=== PATIENT | female | born 1975 | race Caucasian/White ===

== ENCOUNTER 2017-10-08 14:35 | Outpatient (CLI) | payer OTHER ==
[~2017-10-08 14:35] MED LIST: CHOL2000 PO; CYAN10006 IM; DICL50PO5 PO; DOCU250C47 PO; DULO60CA64 PO; ESOM40CA PO; FENT-91 TD; FENT-92 TD; FOLI1TAB16 PO; LEVO125T PO; LISI10TA4 PO; METF-516 PO; NAPR220T67 PO; ONDA8TAB62 PO; OXYC-657 PO; OXYC-658 PO; TIZA-248 PO; TOPI100C6 PO; TRIA15CR3 TOP
[2017-10-08 15:28] LABS: BASOPHILS # (AUTO) 0.2 X10'3 (0-0.2); BASOPHILS % (AUTO) 1.3 % (0-1); EOSINOPHILS # (AUTO) 0.2 X10'3 (0-0.9); EOSINOPHILS % (AUTO) 1.9 % (0-6); HEMATOCRIT 44.3 % (35.0-45.0); HEMOGLOBIN 14.6 g/dl (12.0-16.0); LYMPHOCYTES # (AUTO) 4.2 X10'3 (1.1-4.8); LYMPHOCYTES % (AUTO) 35.6 % (21-51); MEAN CORPUSCULAR HEMOGLOBIN 26.8 PG (27.0-31.0); MEAN CORPUSCULAR HGB CONC 32.9 % (33.0-36.5); MEAN CORPUSCULAR VOLUME 81.2 FL (78-98); MEAN PLATELET VOLUME 8.5 FL (7.4-10.4); MONOCYTES # (AUTO) 0.5 X10'3 (0-0.9); MONOCYTES % (AUTO) 4.6 % (2-12); NEUTROPHILS # (AUTO) 6.8 X10'3 (1.8-7.7); NEUTROPHILS % (AUTO) 56.6 % (42-75); PLATELET COUNT 326 X10'3 (140-440); RED BLOOD COUNT 5.46 X10'6 (4.20-5.60); RED CELL DISTRIBUTION WIDTH 13.6 % (11.5-14.5); WHITE BLOOD COUNT 11.9 X10'3 (4.5-11.0)
[2017-10-08 15:53] LABS: ALANINE AMINOTRANSFERASE 40 U/L (12-78); ALBUMIN 3.7 G/DL (3.4-5.0); ALBUMIN/GLOBULIN RATIO 0.8 (1.1-1.5); ALKALINE PHOSPHATASE 117 IU/L (46-116); ANION GAP 9 (8-16); ASPARTATE AMINO TRANSFERASE 25 U/L (10-37); BILIRUBIN,TOTAL 0.3 MG/DL (0.1-1.0); BLOOD UREA NITROGEN 10 MG/DL (7-18); BUN/CREATININE RATIO 15.2 (6.6-38.0); CALCIUM 9.2 MG/DL (8.5-10.1); CHLORIDE 101 MMOL/L (99-107); CHOL/HDL RATIO 4.5 (0.00-4.99); CHOLESTEROL 238 MG/DL (0-200); CREATININE 0.66 MG/DL (0.40-0.90); GLUCOSE 90 MG/DL (70-104); HDL CHOLESTEROL 53 MG/DL (35-60); LDL CHOLESTEROL 144 MG/DL (50-100); PREALBUMIN 31.2 MG/DL (19-36); SODIUM 138 MMOL/L (135-145); TOTAL CARBON DIOXIDE 27.7 MMOL/L (24-32); TOTAL PROTEIN 8.3 G/DL (6.4-8.2); TRIGLYCERIDES 272 MG/DL (20-135); eGFR > 90 ML/MIN
[2017-10-08 15:54] LABS: POTASSIUM 4.2 MMOL/L (3.5-5.1)
[2017-10-08 16:13] LABS: % IRON SATURATION 16 % (11-46); IRON 61 UG/DL (49-151); TOTAL IRON BINDING CAPACITY 393 UG/DL (259-388)
[2017-10-10 13:24] LABS: VITAMIN D, 25-HYDROXY 32.5 ng/mL (30.0-100.0)
== END 2017-10-08 23:59 | disposition home or self-care (01) ==
LOC: LAB 14:35
PROVIDERS: ATTEND Physician Assistant Medical
DX: F32.9 Major depressive disorder, single episode, unspecified (principal); E07.9 Disorder of thyroid, unspecified; K21.9 Gastro-esophageal reflux disease without esophagitis; E66.01 Morbid (severe) obesity due to excess calories; R73.01 Impaired fasting glucose; M19.90 Unspecified osteoarthritis, unspecified site; G47.33 Obstructive sleep apnea (adult) (pediatric); I10 Essential (primary) hypertension; Z72.4 Inappropriate diet and eating habits; Z98.84 Bariatric surgery status
CPT/HCPCS: 36415; 80053; 80061; 82306; 82607; 83036; 83540; 83550; 84134; 84443; 84466; 85025

== ENCOUNTER 2018-01-14 11:57 | Outpatient (CLI) | payer OTHER ==
[2018-01-14 13:07] LABS: BASOPHILS # (AUTO) 0.1 X10'3 (0-0.2); BASOPHILS % (AUTO) 0.9 % (0-1); EOSINOPHILS # (AUTO) 0.2 X10'3 (0-0.9); EOSINOPHILS % (AUTO) 2.1 % (0-6); HEMATOCRIT 41.3 % (35.0-45.0); HEMOGLOBIN 14.1 g/dl (12.0-16.0); LYMPHOCYTES # (AUTO) 4.8 X10'3 (1.1-4.8); LYMPHOCYTES % (AUTO) 41.9 % (21-51); MEAN CORPUSCULAR HEMOGLOBIN 28.8 PG (27.0-31.0); MEAN CORPUSCULAR HGB CONC 34.1 % (33.0-36.5); MEAN CORPUSCULAR VOLUME 84.2 FL (78-98); MEAN PLATELET VOLUME 8.2 FL (7.4-10.4); MONOCYTES # (AUTO) 0.6 X10'3 (0-0.9); MONOCYTES % (AUTO) 4.8 % (2-12); NEUTROPHILS # (AUTO) 5.8 X10'3 (1.8-7.7); NEUTROPHILS % (AUTO) 50.3 % (42-75); PLATELET COUNT 364 X10'3 (140-440); RED BLOOD COUNT 4.91 X10'6 (4.20-5.60); RED CELL DISTRIBUTION WIDTH 13.9 % (11.5-14.5); WHITE BLOOD COUNT 11.5 X10'3 (4.5-11.0)
[2018-01-14 13:22] LABS: ALANINE AMINOTRANSFERASE 23 U/L (12-78); ALBUMIN 3.7 G/DL (3.4-5.0); ALBUMIN/GLOBULIN RATIO 0.9 (1.1-1.5); ALKALINE PHOSPHATASE 111 IU/L (46-116); ANION GAP 12 (8-16); ASPARTATE AMINO TRANSFERASE 10 U/L (10-37); BILIRUBIN,TOTAL 0.2 MG/DL (0.1-1.0); BLOOD UREA NITROGEN 21 MG/DL (7-18); BUN/CREATININE RATIO 29.2 (6.6-38.0); CALCIUM 8.9 MG/DL (8.5-10.1); CHLORIDE 101 MMOL/L (99-107); CHOL/HDL RATIO 4.7 (0.00-4.99); CHOLESTEROL 234 MG/DL (0-200); CREATININE 0.72 MG/DL (0.40-0.90); GLUCOSE 96 MG/DL (70-104); HDL CHOLESTEROL 50 MG/DL (35-60); LDL CHOLESTEROL 142 MG/DL (50-100); POTASSIUM 3.9 MMOL/L (3.5-5.1); SODIUM 138 MMOL/L (135-145); TOTAL CARBON DIOXIDE 25.1 MMOL/L (24-32); TOTAL PROTEIN 7.7 G/DL (6.4-8.2); TRIGLYCERIDES 342 MG/DL (20-135); eGFR 90 ML/MIN
[2018-01-14 13:32] LABS: % IRON SATURATION 17 % (11-46); IRON 76 UG/DL (49-151); TOTAL IRON BINDING CAPACITY 436 UG/DL (259-388)
[2018-01-14 13:51] LABS: FERRITIN 22 NG/ML (8-252)
[2018-01-15 08:16] LABS: VITAMIN D, 25-HYDROXY 31.9 ng/mL (30.0-100.0)
[2018-01-15 11:17] LABS: TRANSFERRIN 349 mg/dL (200-370)
== END 2018-01-14 23:59 | disposition home or self-care (01) ==
LOC: LAB 11:57
PROVIDERS: ATTEND Family Medicine
DX: I10 Essential (primary) hypertension (principal); K21.9 Gastro-esophageal reflux disease without esophagitis; E07.9 Disorder of thyroid, unspecified; F32.9 Major depressive disorder, single episode, unspecified; M19.90 Unspecified osteoarthritis, unspecified site; G47.33 Obstructive sleep apnea (adult) (pediatric); R73.01 Impaired fasting glucose; E66.9 Obesity, unspecified; Z72.4 Inappropriate diet and eating habits; Z98.84 Bariatric surgery status
CPT/HCPCS: 36415; 80053; 80061; 82306; 82607; 82728; 82746; 83540; 83550; 84134; 84466; 85025

== ENCOUNTER → 2018-08-13 | Emergency (ER) | payer OTHER ==
[~2018-08-13] VITALS: Ht 167.6 cm; Wt 104.5 kg
[~2018-08-13] MED LIST changes: -FENT-91 TD; -FENT-92 TD; +FENT1PAT10 TD; +FENT1PAT11 TD
== END | disposition home or self-care (01) ==
LOC: ER 12:03
DX: G89.29 Other chronic pain (principal); M54.5 Low back pain; K21.9 Gastro-esophageal reflux disease without esophagitis; E03.9 Hypothyroidism, unspecified; Z98.890 Other specified postprocedural states; Z88.2 Allergy status to sulfonamides; Z91.040 Latex allergy status; Z88.8 Allergy status to other drugs, medicaments and biological substances; Z79.899 Other long term (current) drug therapy
CPT/HCPCS: 99281

== ENCOUNTER 2018-10-18 08:49 | Outpatient (CLI) | payer OTHER ==
[2018-10-18 11:14] LABS: CLARITY,URINE CLOUDY (Clear); COLOR,URINE YELLOW (Yellow); GLUCOSE, URINE NEGATIVE (Neg); KETONES,URINE NEGATIVE (Neg); LEUKOCYTE ESTERASE ,URINE NEGATIVE (Neg); NITRITES, URINE NEGATIVE (Neg); OCCULT BLOOD,URINE NEGATIVE (Neg); PH,URINE 5.5 (4.8-8.0); PROTEIN,URINE NEGATIVE (Neg); UROBILINOGEN,URINE 0.2 E.U/dL (0.2-1.0)
[2018-10-18 11:15] LABS: UA COLLECTION TYPE NON-SPECIFIED
[2018-10-18 11:38] LABS: BACTERIA,URINE FEW /HPF (Neg); SQUAMOUS EPITHELIAL CELL,UR MANY /LPF (FEW)
[2018-10-18 11:39] LABS: RBC,URINE NONE SEEN /HPF (0-2); TRANSITIONAL EPI CELLS,URINE FEW /HPF; WBC,URINE NONE SEEN /HPF (0-4); YEAST MODERATE /HPF (NEGATIVE)
[2018-10-19 08:11] LABS: ESTRADIOL 157.1 pg/mL (.); PROGESTERONE 2.7 ng/mL (.)
== END 2018-10-18 23:59 | disposition home or self-care (01) ==
LOC: LAB 08:49
PROVIDERS: ATTEND Family Medicine
DX: G93.3 Postviral and related fatigue syndromes (principal); E34.9 Endocrine disorder, unspecified; R23.2 Flushing; N39.0 Urinary tract infection, site not specified; G43.909 Migraine, unspecified, not intractable, without status migrainosus; Z88.2 Allergy status to sulfonamides; Z91.040 Latex allergy status; Z88.3 Allergy status to other anti-infective agents; Z79.899 Other long term (current) drug therapy
CPT/HCPCS: 36415; 81001; 82670; 84144; 84402; 84403; 84481

== ENCOUNTER 2018-10-18 09:48 | Outpatient (CLI) | payer OTHER ==
[2018-10-18 11:40] LABS: BASOPHILS % (AUTO) 0.4 % (0-1); EOSINOPHILS # (AUTO) 0.2 X10'3 (0-0.9); EOSINOPHILS % (AUTO) 1.8 % (0-6); HEMATOCRIT 39.7 % (35.0-45.0); HEMOGLOBIN 13.2 g/dl (12.0-16.0); LYMPHOCYTES # (AUTO) 2.3 X10'3 (1.1-4.8); LYMPHOCYTES % (AUTO) 25.5 % (21-51); MEAN CORPUSCULAR HEMOGLOBIN 28.3 PG (27.0-31.0); MEAN CORPUSCULAR HGB CONC 33.3 g/dL (33.0-36.5); MEAN PLATELET VOLUME 8.1 FL (7.4-10.4); MONOCYTES # (AUTO) 0.8 X10'3 (0-0.9); NEUTROPHILS # (AUTO) 5.7 X10'3 (1.8-7.7); NEUTROPHILS % (AUTO) 63.3 % (42-75); PLATELET COUNT 311 X10'3 (140-440); RED BLOOD COUNT 4.67 X10'6 (4.20-5.60); RED CELL DISTRIBUTION WIDTH 13.6 % (11.5-14.5)
[2018-10-18 12:12] LABS: IRON 47 UG/DL (49-151)
[2018-10-18 12:20] LABS: ALANINE AMINOTRANSFERASE 21 U/L (12-78); ALBUMIN 3.7 G/DL (3.4-5.0); ALKALINE PHOSPHATASE 109 IU/L (46-116); ANION GAP 7 (8-16); ASPARTATE AMINO TRANSFERASE 15 U/L (10-37); BILIRUBIN,TOTAL 0.3 MG/DL (0.1-1.0); BLOOD UREA NITROGEN 11 MG/DL (7-18); BUN/CREATININE RATIO 18.3 (6.6-38.0); CALCIUM 8.9 MG/DL (8.5-10.1); CHLORIDE 100 MMOL/L (99-107); CHOL/HDL RATIO 3.6 (0.00-4.99); CHOLESTEROL 212 MG/DL (0-200); GLUCOSE 101 MG/DL (70-104); HDL CHOLESTEROL 59 MG/DL (35-60); LDL CHOLESTEROL 129 MG/DL (50-100); POTASSIUM 3.9 MMOL/L (3.5-5.1); PREALBUMIN 27.4 MG/DL (19-36); SODIUM 134 MMOL/L (135-145); TOTAL CARBON DIOXIDE 26.6 MMOL/L (24-32); TOTAL PROTEIN 7.4 G/DL (6.4-8.2); TRIGLYCERIDES 171 MG/DL (20-135); eGFR > 90 ML/MIN
[2018-10-19 08:11] LABS: VITAMIN D, 25-HYDROXY 35.8 ng/mL (30.0-100.0)
== END 2018-10-18 23:59 | disposition home or self-care (01) ==
LOC: LAB 09:48
PROVIDERS: ATTEND Family Medicine
DX: I10 Essential (primary) hypertension (principal); E66.9 Obesity, unspecified; G89.29 Other chronic pain; M47.816 Spondylosis without myelopathy or radiculopathy, lumbar region; F32.9 Major depressive disorder, single episode, unspecified; E11.9 Type 2 diabetes mellitus without complications; K21.9 Gastro-esophageal reflux disease without esophagitis; G62.9 Polyneuropathy, unspecified; E53.8 Deficiency of other specified B group vitamins; Z88.2 Allergy status to sulfonamides; Z91.040 Latex allergy status; Z88.3 Allergy status to other anti-infective agents; Z79.899 Other long term (current) drug therapy
CPT/HCPCS: 36415; 80053; 80061; 82306; 82607; 82746; 83540; 84134; 84439; 84443; 85025

== ENCOUNTER 2019-02-13 09:49 | Outpatient (CLI) | payer OTHER ==
[~2019-02-13 09:49] MED LIST changes: -DULO60CA64 PO; +DULO60CA65 PO; -TIZA-248 PO; +TIZA4TAB5 PO
[2019-02-13] MEDS ORDERED: BARIUM SULFATE 340 ML SUSP.RECON***PROCEDURE AREA ONLY**DONT ENTER PO ONE ×2 (12:00)
== END 2019-02-13 23:59 | disposition home or self-care (01) ==
LOC: RAD 09:49
PROVIDERS: ATTEND Physician Assistant Medical
DX: M47.816 Spondylosis without myelopathy or radiculopathy, lumbar region (principal); K21.9 Gastro-esophageal reflux disease without esophagitis
CPT/HCPCS: 72110; 72148; 72202; 74241

== ENCOUNTER 2019-02-13 09:56 | Outpatient (CLI) | payer OTHER | END 2019-02-13 23:59 | disposition home or self-care (01) | LOC: RAD 09:56 | PROVIDERS: ATTEND Family Medicine | DX: M47.816 Spondylosis without myelopathy or radiculopathy, lumbar region (principal); M46.98 Unspecified inflammatory spondylopathy, sacral and sacrococcygeal region; M54.32 Sciatica, left side; M54.5 Low back pain; Z98.1 Arthrodesis status | CPT/HCPCS: 72148 ==

== ENCOUNTER → 2019-04-22 | Day surgery (SDC) | payer OTHER ==
[~2019-04-22] MED LIST changes: +BUPR2TAB11 SL; +BUSP10TA11 PO; +CHOL100053 PO; +CLON0.1T PO; +CYCL10TA26 PO; +DULO-31 PO; +FOLI0.8T PO; +METO-384 PO; +ONDA8TAB13 PO; +VITA1TAB20 PO; +[UNRECOGNIZED DRUG - CODE] TP; +[UNRECOGNIZED DRUG - MIXTURE] TOP; +iohexol 300 MG/1 ML 50ml polymer ONE
== END | disposition home or self-care (01) ==
LOC: RAD 08:31
PROVIDERS: ATTEND Orthopaedic Surgery Orthopaedic Surgery of the Spine
DX: M54.5 Low back pain (principal); M79.605 Pain in left leg; M79.604 Pain in right leg; Z98.1 Arthrodesis status
CPT/HCPCS: 72100; Q9967

== ENCOUNTER 2019-04-25 07:55 | Day surgery (SDC) | payer OTHER ==
[~2019-04-25] VITALS: Ht 165.1 cm; Wt 113.5 kg
[2019-04-25] VITALS (8 sets, daily range): BP systolic 97–138; BP diastolic 65–83
[~2019-04-25 07:55] MED LIST changes: -BUPR2TAB11 SL; -BUSP10TA11 PO; -CHOL100053 PO; -CLON0.1T PO; -CYCL10TA26 PO; -DULO-31 PO; -FOLI0.8T PO; -METO-384 PO; -ONDA8TAB13 PO; -VITA1TAB20 PO; -[UNRECOGNIZED DRUG - CODE] TP; -[UNRECOGNIZED DRUG - MIXTURE] TOP; -iohexol 300 MG/1 ML 50ml polymer ONE
[2019-04-25] MEDS ORDERED: fentaNYL/PF 50MCG/1 ML 2ML syringe IV ONE (08:25)
[2019-04-25] MEDS ORDERED: MIDAZolam 1mg/ml 10ml vial IV ONE (08:25)
[2019-04-25] MEDS ORDERED: normal saline 1000ml 1,000 ML IV SCH (08:25)
[2019-04-25] MEDS ORDERED: LIDOcaine 1% (10mg/ml) 2ml vial ONE (08:52)
[2019-04-25] MEDS ORDERED: LIDOcaine 1%/PF 5ML 10 MG/ML VIAL ONE (09:37)
[2019-04-25] MEDS ORDERED: midazolam 2 mg/2 ml injection ONE ×3 (09:37→10:15)
[2019-04-25] MEDS ORDERED: fentaNYL/PF 50MCG/1 ML 2ML syringe ONE ×3 (09:37→10:15)
[2019-04-25] MEDS ORDERED: IOPAMIDOL 10 ML VIAL IT ONE (09:37)
[2019-04-25] MEDS ORDERED: FOLI0.8T PO (09:52)
[2019-04-25] MEDS ORDERED: CHOL100053 PO (09:52)
[2019-04-25] MEDS ORDERED: VITA1TAB20 PO (10:04)
[2019-04-25] MEDS ORDERED: [UNRECOGNIZED DRUG - CODE] TP (10:04)
[2019-04-25] MEDS ORDERED: CYCL10TA26 PO (10:04)
[2019-04-25] MEDS ORDERED: METO-384 PO (10:04)
[2019-04-25] MEDS ORDERED: CLON0.1T PO (10:04)
[2019-04-25] MEDS ORDERED: BUPR2TAB11 SL (10:04)
[2019-04-25] MEDS ORDERED: BUSP10TA11 PO (10:04)
[2019-04-25] MEDS ORDERED: DULO-31 PO (10:04)
[2019-04-25] MEDS ORDERED: ONDA8TAB13 PO (10:04)
[2019-04-25] MEDS ORDERED: [UNRECOGNIZED DRUG - MIXTURE] TOP (10:04)
[2019-04-25] MEDS ORDERED: cyclobenzaprine 10mg tablet PO STA (12:20)
== END 2019-04-25 13:25 | disposition home or self-care (01) ==
LOC: SSTAY O 07:55
PROVIDERS: ATTEND Radiology Diagnostic Radiology
DX: M54.5 Low back pain (principal); M79.606 Pain in leg, unspecified; Z98.1 Arthrodesis status; Z88.2 Allergy status to sulfonamides; Z91.040 Latex allergy status; Z88.8 Allergy status to other drugs, medicaments and biological substances; Z79.899 Other long term (current) drug therapy
CPT/HCPCS: 62284; 99152; 99153; J2001; J2250; J3010; J7030; Q9966; 72265

== ENCOUNTER 2019-04-25 08:05 | Outpatient (CLI) | payer OTHER ==
[2019-04-25] MEDS ORDERED: FOLI0.8T PO (09:52)
[2019-04-25] MEDS ORDERED: CHOL100053 PO (09:52)
[2019-04-25] MEDS ORDERED: BUSP10TA11 PO (10:04)
[2019-04-25] MEDS ORDERED: CYCL10TA26 PO (10:04)
[2019-04-25] MEDS ORDERED: [UNRECOGNIZED DRUG - MIXTURE] TOP (10:04)
[2019-04-25] MEDS ORDERED: VITA1TAB20 PO (10:04)
[2019-04-25] MEDS ORDERED: ONDA8TAB13 PO (10:04)
[2019-04-25] MEDS ORDERED: METO-384 PO (10:04)
[2019-04-25] MEDS ORDERED: CLON0.1T PO (10:04)
[2019-04-25] MEDS ORDERED: DULO-31 PO (10:04)
[2019-04-25] MEDS ORDERED: [UNRECOGNIZED DRUG - CODE] TP (10:04)
[2019-04-25] MEDS ORDERED: BUPR2TAB11 SL (10:04)
== END 2019-04-25 23:59 | disposition home or self-care (01) ==
LOC: VAS 08:05
PROVIDERS: ATTEND Family Medicine
DX: M47.816 Spondylosis without myelopathy or radiculopathy, lumbar region (principal); G62.9 Polyneuropathy, unspecified; R73.02 Impaired glucose tolerance (oral); R20.2 Paresthesia of skin
CPT/HCPCS: 93925

== ENCOUNTER 2019-08-01 10:55 | Outpatient (CLI) | payer OTHER ==
[~2019-08-01 10:55] MED LIST changes: +BUPR2TAB11 SL; +BUSP10TA11 PO; +BUSP5TAB3 PO; +CHOL100053 PO; -CHOL2000 PO; +CLON0.1T PO; +CYAN100019 PO; -CYAN10006 IM; +CYCL10TA26 PO; -DICL50PO5 PO; +DULO-31 PO; -DULO60CA65 PO; -FENT1PAT10 TD; -FENT1PAT11 TD; +FOLI0.8T PO; -FOLI1TAB16 PO; +GABA-530 PO; +METF-436 PO; -METF-516 PO; +METO-384 PO; -NAPR220T67 PO; -OXYC-657 PO; -OXYC-658 PO; -TIZA4TAB5 PO; -TOPI100C6 PO; -TRIA15CR3 TOP; +VITA1TAB20 PO; +[UNRECOGNIZED DRUG - MIXTURE] TOP
[2019-08-01 12:19] LABS: C-REACTIVE PROTEIN 0.49 MG/DL (0.0-0.5)
== END 2019-08-01 23:59 | disposition home or self-care (01) ==
LOC: LAB 10:55
PROVIDERS: ATTEND Family Medicine
DX: E03.9 Hypothyroidism, unspecified (principal); I10 Essential (primary) hypertension; D72.829 Elevated white blood cell count, unspecified
CPT/HCPCS: 36415; 85651; 86140; 86376; 87040

== ENCOUNTER 2019-08-08 12:13 | Outpatient (CLI) | payer OTHER ==
[2019-08-08 12:50] LABS: BASOPHILS # (AUTO) 0.1 X10'3 (0-0.2); BASOPHILS % (AUTO) 0.6 % (0-1); EOSINOPHILS # (AUTO) 0.3 X10'3 (0-0.9); EOSINOPHILS % (AUTO) 2.9 % (0-6); HEMATOCRIT 40.4 % (35.0-45.0); HEMOGLOBIN 13.9 g/dl (12.0-16.0); LYMPHOCYTES # (AUTO) 5.4 X10'3 (1.1-4.8); MEAN CORPUSCULAR HEMOGLOBIN 28.4 PG (27.0-31.0); MEAN CORPUSCULAR HGB CONC 34.3 g/dL (33.0-36.5); MEAN CORPUSCULAR VOLUME 82.9 FL (78-98); MEAN PLATELET VOLUME 7.7 FL (7.4-10.4); MONOCYTES # (AUTO) 0.6 X10'3 (0-0.9); MONOCYTES % (AUTO) 5.2 % (2-12); NEUTROPHILS % (AUTO) 44.3 % (42-75); PLATELET COUNT 451 X10'3 (140-440); RED BLOOD COUNT 4.88 X10'6 (4.20-5.60); RED CELL DISTRIBUTION WIDTH 13.8 % (11.5-14.5); WHITE BLOOD COUNT 11.4 X10'3 (4.5-11.0)
[2019-08-08 13:00] LABS: CLARITY,URINE SLIGHTLY CLOUDY (Clear); COLOR,URINE YELLOW (Yellow); GLUCOSE, URINE NEGATIVE (Neg); KETONES,URINE NEGATIVE (Neg); LEUKOCYTE ESTERASE ,URINE NEGATIVE (Neg); NITRITES, URINE NEGATIVE (Neg); OCCULT BLOOD,URINE NEGATIVE (Neg); PH,URINE 5.5 (4.8-8.0); PROTEIN,URINE NEGATIVE (Neg); UROBILINOGEN,URINE 0.2 E.U/dL (0.2-1.0)
[2019-08-08 13:03] LABS: UA COLLECTION TYPE CLN CATCH MIDSTREAM
[2019-08-08 13:08] LABS: BACTERIA,URINE 1+ /HPF (Neg); MUCUS STRANDS NONE SEEN /LPF (Neg); RBC,URINE NONE SEEN /HPF (0-2); SQUAMOUS EPITHELIAL CELL,UR MODERATE /LPF (FEW); WBC,URINE 0-4 /HPF (0-4)
[2019-08-08 13:09] LABS: YEAST FEW /HPF (NEGATIVE)
[2019-08-08 13:16] LABS: ALANINE AMINOTRANSFERASE 26 U/L (12-78); ALBUMIN/GLOBULIN RATIO 1.1 (1.1-1.5); ANION GAP 8 (8-16); ASPARTATE AMINO TRANSFERASE 19 U/L (10-37); BILIRUBIN,TOTAL 0.3 MG/DL (0.1-1.0); BLOOD UREA NITROGEN 15 MG/DL (7-18); BUN/CREATININE RATIO 23.1 (6.6-38.0); C-REACTIVE PROTEIN 0.42 MG/DL (0.0-0.5); CALCIUM 9.1 MG/DL (8.5-10.1); CHLORIDE 100 MMOL/L (99-107); CREATININE 0.65 MG/DL (0.40-0.90); GLUCOSE 94 MG/DL (70-104); SODIUM 137 MMOL/L (135-145); TOTAL CARBON DIOXIDE 29.5 MMOL/L (24-32); TOTAL PROTEIN 7.8 G/DL (6.4-8.2); eGFR > 90 ML/MIN
[2019-08-08 13:17] LABS: ALKALINE PHOSPHATASE 91 IU/L (46-116)
[2019-08-08 13:30] LABS: TOTAL CELLS COUNTED 100
[2019-08-08 13:31] LABS: PLATELET ESTIMATE INCREASED
== END 2019-08-08 23:59 | disposition home or self-care (01) ==
LOC: LAB 12:13
PROVIDERS: ATTEND Family Medicine
DX: D72.829 Elevated white blood cell count, unspecified (principal)
CPT/HCPCS: 36415; 80053; 81001; 85025; 85651; 86140

== ENCOUNTER 2019-08-29 09:29 | Inpatient (IN) | payer OTHER ==
[2019-08-25 16:08] LABS: BASOPHILS # (AUTO) 0.1 X10'3 (0-0.2); BASOPHILS % (AUTO) 0.5 % (0-1); EOSINOPHILS # (AUTO) 0.3 X10'3 (0-0.9); EOSINOPHILS % (AUTO) 2.5 % (0-6); LYMPHOCYTES # (AUTO) 4.2 X10'3 (1.1-4.8); LYMPHOCYTES % (AUTO) 35.3 % (21-51); MEAN CORPUSCULAR HEMOGLOBIN 28.4 PG (27.0-31.0); MEAN CORPUSCULAR HGB CONC 34.3 g/dL (33.0-36.5); MEAN CORPUSCULAR VOLUME 82.8 FL (78-98); MEAN PLATELET VOLUME 8.1 FL (7.4-10.4); MONOCYTES # (AUTO) 0.7 X10'3 (0-0.9); NEUTROPHILS # (AUTO) 6.6 X10'3 (1.8-7.7); NEUTROPHILS % (AUTO) 55.7 % (42-75); PRE OP HEMATOCRIT 40.9 % (35.0-45.0); PRE OP PLATELET COUNT 406 X10'3 (140-440); RED BLOOD COUNT 4.93 X10'6 (4.20-5.60); RED CELL DISTRIBUTION WIDTH 14.1 % (11.5-14.5)
[2019-08-25 16:26] LABS: ALBUMIN 4.2 G/DL (3.4-5.0); ALBUMIN/GLOBULIN RATIO 1.1 (1.1-1.5); ALKALINE PHOSPHATASE 105 IU/L (46-116); BLOOD UREA NITROGEN 9 MG/DL (7-18); BUN/CREATININE RATIO 11.7 (6.6-38.0); CHLORIDE 103 MMOL/L (99-107); CREATININE 0.77 MG/DL (0.40-0.90); PRE OP ALT 18 U/L (30-65); PRE OP ANION GAP 10 (8-16); PRE OP AST 13 U/L (10-37); PRE OP BILIRUB, TOTAL 0.3 MG/DL (0.0-1.0); PRE OP GLUCOSE 166 MG/DL (70-104); PRE OP POTASSIUM 3.4 MMOL/L (3.4-5.1); PRE OP SODIUM 138 MMOL/L (135-145); TOTAL CARBON DIOXIDE 25.1 MMOL/L (24-32); TOTAL PROTEIN 8.1 G/DL (6.4-8.2); eGFR 82 ML/MIN
[~2019-08-29] VITALS: Ht 165.1 cm; Wt 110.5 kg
[2019-08-29] VITALS (10 sets, daily range): BP systolic 120–166; BP diastolic 72–100
[~2019-08-29 09:29] MED LIST changes: -CYCL10TA26 PO; +DOCUMENT DATE & TIME OF BETA-BLOCKER PO ONE; +TIZA4TAB11 PO
[2019-08-29] MEDS ORDERED: ringers solution, lacted 1,000 ML IV SCH ×2 (10:00→15:31)
[2019-08-29] MEDS ORDERED: ceFAZolin 2gm in dextrose, iso 50 ML IV ONE (10:00)
[2019-08-29] MEDS ORDERED: famotidine 20mg tablet PO ONE (10:00)
[2019-08-29] MEDS ORDERED: vancomycin inj 1,500 MG in normal saline 300ml IV soln IV ONE (10:00)
[2019-08-29] MEDS ORDERED: methylene blue (5mg/ml) 50mg/10ml ampul IV ONE (12:36)
[2019-08-29] MEDS ORDERED: Thrombin (Bovine) 5,000 unit vial TP ONE (12:36)
[2019-08-29] MEDS ORDERED: gelatin sponge, absorbable (Gelfoam 100) sponge TP ONE (12:36)
[2019-08-29] MEDS ORDERED: ceFAZolin 1000mg inj ONE ×3 (12:36→16:44)
[2019-08-29] MEDS ORDERED: midazolam 2 mg/2 ml injection ONE (12:41)
[2019-08-29] MEDS ORDERED: dexmedetomidin/NS 400mcg/100mL bag IV ONE (12:48)
[2019-08-29] MEDS ORDERED: sevoflurane 250ml liquid IH ONE (12:48)
[2019-08-29] MEDS ORDERED: fentaNYL /PF 50mcg/ml 5ml ampule ONE ×3 (12:48→19:40)
[2019-08-29] MEDS ORDERED: rocuronium 10mg/ml inj IV ONE ×5 (12:48→17:22)
[2019-08-29] MEDS ORDERED: CADD PCA waste documentation MC PRN (12:55)
[2019-08-29] MEDS ORDERED: bisacodyl 10mg suppository rectal RC PRN (12:55)
[2019-08-29] MEDS ORDERED: magnesium hydroxide 30ml (MOM) UD suspension PO PRN (12:55)
[2019-08-29] MEDS ORDERED: diphenhydrAMINE 50 mg/ml inj IV PRN (12:55)
[2019-08-29] MEDS ORDERED: temazepam 15mg capsule PO PRN (12:55)
[2019-08-29] MEDS ORDERED: mag hydrox/Alum hydrox/simeth 30ml oral suspension PO PRN (12:55)
[2019-08-29] MEDS ORDERED: naloxone 0.4 mg/ml inj IV PRN (12:55)
[2019-08-29] MEDS ORDERED: ondansetron 4mg rapidly disintigrating tab PO PRN (12:55)
[2019-08-29] MEDS ORDERED: BUPRENORPHINE HCL 2 MG SL PRN (12:55)
[2019-08-29] MEDS ORDERED: HYDROcodone/acetaminophen 10/325mg tab PO PRN ×2 (12:55)
[2019-08-29] MEDS ORDERED: HYDROmorphone/NS 1 mg/ml CADD 50 ML IV SCH ×2 (13:00→23:00)
[2019-08-29] MEDS ORDERED: propofol 1000mg/100ml bottle 100 ML IV SCH (14:30)
[2019-08-29] MEDS ORDERED: 0.9 % SODIUM CHLORIDE 10 ML VIAL ONE ×3 (15:12)
[2019-08-29] MEDS ORDERED: ketorolac trometh. 30mg/ml inj. ONE (15:13)
[2019-08-29] MEDS ORDERED: propofol inj 20 ML IV ONE (15:13)
[2019-08-29] MEDS ORDERED: phenylephrine 10mg/ml inj. ONE ×3 (15:13)
[2019-08-29] MEDS ORDERED: LIDOcaine 2% (20mg/ml) 5ml vial ONE (15:13)
[2019-08-29] MEDS ORDERED: ePHEDrine 50MG/ML INJ. ONE ×2 (15:13→15:35)
[2019-08-29] MEDS ORDERED: METF-516 PO (15:33)
[2019-08-29] MEDS ORDERED: ondansetron/PF 4mg/2ml inj IV PRN (15:35)
[2019-08-29] MEDS ORDERED: HYDROmorphone inj. 0.5 MG/0.5 ML DISP.SYRIN IV PRN ×2 (15:35)
[2019-08-29] MEDS ORDERED: proCHLORperazine 10 MG/2 ml inj IV PRN (15:35)
[2019-08-29] MEDS ORDERED: meperidine/PF 25mg/ml syringe IV PRN (15:35)
[2019-08-29] MEDS ORDERED: fentaNYL/PF 50MCG/1 ML 2ML syringe IV PRN ×2 (15:35)
[2019-08-29] MEDS ORDERED: dexamethasone sod phosphate 4mg/ml inj. ONE (18:05)
[2019-08-29] MEDS ORDERED: ondansetron/PF 4mg/2ml inj ONE (18:05)
[2019-08-29] MEDS ORDERED: dexmedetomidine 200mcg/2ml inj. IV ONE (18:53)
[2019-08-29] MEDS ORDERED: sugammadex 200mg/2ml injection IV ONE (18:53)
[2019-08-29] MEDS ORDERED: albumin (Human) 5% 250ml 750 ML IV ONE (19:00)
[2019-08-29] MEDS ORDERED: tranexamic acid inj. 1,500 MG in normal saline 100ml IV soln 100 ML IV ONE (19:35)
[2019-08-29] MEDS ORDERED: vancomycin/NS 1 GM ADD-VANTAGE 250 ML IV SCH (20:00)
[2019-08-29] MEDS: docusate sod 100mg capsule PO SCH (20:00)
[2019-08-29] MEDS: metFORMIN 500mg tablet PO SCH (20:00)
[2019-08-29] MEDS: sennosides/docusate sodium tablet PO SCH (20:00)
[2019-08-29] MEDS: cloNIDine 0.1 mg tablet PO SCH (20:00)
--- NOTE | 2019-08-29 20:20 | NUR ---
Received from OR via BED, accompanied by Anesthesiologist ORLANDO and report given by Anesthesiolgist. PATIENT WAKING UP, NO S/S OF PAIN, V/S WNL, CSM INTACT, NEUROCHECKS INTACT WITH NO DEFICITS. MIDLINE TO LUE. CL D/C ART LINE D/C, SCD ON. NANDO TO SPINE AREA WITH MINIMAL RED DRAINAGE. F/C DRAINING CLEAR YELLOW URINE. FISHING CAPTAIN SET UP AND INSTRUCTION GIVEN Addendum: 08/29/19 at 2334 by Valente Valenzuela RN WRONG TIME ENTRY
[2019-08-29] MEDS ORDERED: albumin (Human) 5% 250ml 250 ML IV ONE ×4 (20:42)
[2019-08-29] MEDS: metoprolol succinate 25mg (24-HOUR) SR. Tablet PO SCH (21:00)
[2019-08-29] MEDS: busPIRone 5mg tablet PO SCH (21:00)
[2019-08-29] MEDS: gabapentin 100mg capsule PO SCH (21:00)
[2019-08-29] MEDS ORDERED: docusate sod 250mg capsule PO SCH (21:00)
[2019-08-29] MEDS ORDERED: labetalol 20mg/4ml (5mg/ml) syringe IV ONE (21:44)
[2019-08-29] MEDS ORDERED: acetaminophen 1,000mg/100ml IV 100 ML IV ONE (21:50)
--- NOTE | 2019-08-29 22:20 | NUR ---
Received from OR via BED, accompanied by Anesthesiologist ORLANDO and report given by Anesthesiolgist. PATIENT WAKING UP, NO S/S OF PAIN, V/S WNL, CSM INTACT, NEUROCHECKS INTACT WITH NO DEFICITS. MIDLINE TO LUE. CL D/C ART LINE D/C, SCD ON. NANDO TO SPINE AREA WITH MINIMAL RED DRAINAGE. F/C DRAINING CLEAR YELLOW URINE. MARINE EXTENSION AGENT SET UP AND INSTRUCTION GIVEN
[2019-08-29] MEDS: HYDROmorphone/NS 1 mg/ml CADD 50 ML IV SCH ×2 (22:44→23:00)
[2019-08-29] MEDS: normal saline 1000ml 1,000 ML IV SCH (22:55)
[2019-08-29] MEDS: ondansetron/PF 4mg/2ml inj IV PRN (22:57)
--- NOTE | 2019-08-29 23:01 | NUR ---
ISSUES WITH SCANNING BUN MACHINE OPERATOR FOR DOCUMENTATION. PHARMACY WAS UNABLE TO FIX PROBLEM SO IT IS BEING DOCUMENTED HERE AND MELANI ROSEN WAS MY CO WITNESS TO SET UP AND ADMINISTRATION. ]SETTING IS 0.2MG Q10MIN IV NEEDED FOR PAIN WITH RESIDUAL VOLUME 48.7 WITH NO CONTINOUS BASAL RATE.
--- NOTE | 2019-08-29 23:13 | NUR ---
ISTAT DONE PER MD AND BOLUS GIVEN WITH CADD PER MD TO CONTROL PAIN LEVEL. IV TYLENOL GIVEN WELL, SEE EMAR .
--- NOTE | 2019-08-29 23:20 | NUR ---
PATIENT AWAKE AND ORIENTED X4, C/O OF PAIN AT TIMES STEAM BLOCKER ENCOURAGED AND BOLUS GIVEN, V/S WNL, CSM INTACT, NEUROCHECKS INTACT WITH NO DEFICITS STILL PAIN TO LEGGS AND NEUROPATHY TO LEFT LEG MOSTLY BUT MILD IMPROVEMTN PER PATIENT. . MIDLINE TO LUE. CL D/C ART LINE D/C, SCD ON. NANDO W/ DRESSING TO SPINE AREA WITH MINIMAL RED DRAINAGE. F/C DRAINING CLEAR YELLOW URINE. STEAM BLOCKER SET UP AND INSTRUCTION GIVEN. PATIENT TAKEN TO 4015 B WITH ALL BELONGINGS AND HOOKED UP TO MONITORS IN ROOM AND REPORT GIVEN TO RN WHO HAS TAKEN OVER PATIENT CARE.
--- NOTE | 2019-08-29 23:37 | NUR ---
I tried to scan the dilaudid cadd and co sign with another nurse but the emar will not allow this. I did a regular state superintendent of [employer] check on the setting at this time. The dilaudid cadd was set up in the Recovery room by 2 other nurses.
[2019-08-29] MEDS: tizanidine 4mg tablet PO PRN (23:52)
[2019-08-30] VITALS (11 sets, daily range): BP systolic 95–139; BP diastolic 56–78
[2019-08-30] MEDS: HYDROmorphone/NS 1 mg/ml CADD 50 ML IV SCH ×12 (00:25→23:00)
--- NOTE | 2019-08-30 00:27 | NUR ---
RC'D ORDER FROM DR. ALBA TO CHANGE CADD SETTINGS TO 0.3MG/HR CONTINUOUS, O.3MG Q5MINS FOR PAIN UNCONTROLLED WITH PRIOR SETTING. ATTEMPTED TO DOCUMENT SETTINGS WITH A CO-SIGNER BUT WILL NOT ALLOW US TO DOCUMENT THIS WAY. SETTINGS CHANGED WITH NERY STYLES AND MANDEEP STYLES. 2 RN CHECK.
[2019-08-30] MEDS: vancomycin/NS 1 GM ADD-VANTAGE 250 ML IV SCH ×2 (00:52→09:52)
[2019-08-30] MEDS: normal saline 1000ml 1,000 ML IV SCH ×2 (04:44→15:00)
[2019-08-30] MEDS: ondansetron/PF 4mg/2ml inj IV PRN (06:48)
--- NOTE | 2019-08-30 07:03 | NUR ---
Patient in room [facility]TH[facility] 4015. I have received report from Pauline STYLES and had the opportunity to ask questions and assume patient care.
--- NOTE | 2019-08-30 07:10 | NUR ---
Problems reprioritized. Patient report given, questions answered & plan of care reviewed with IONA STYLES.
[2019-08-30] MEDS ORDERED: pantoprazole 40mg Tablet.DR PO SCH (07:30)
[2019-08-30] MEDS: levoTHYROXINE 125mcg tablet PO SCH (07:39)
[2019-08-30] MEDS: cloNIDine 0.1 mg tablet PO SCH ×2 (08:00→20:00)
[2019-08-30] MEDS: lisinopril 10 MG tablet PO SCH (08:00)
[2019-08-30] MEDS: ceFAZolin 1GM/D5W- ADD-VANTAGE 50 ML IV SCH ×2 (09:00→09:11)
--- NOTE | 2019-08-30 09:00 | NUR ---
MD Ramos okayed to give ancef late dose this morning.
[2019-08-30] MEDS: vitamin D (cholecalciferol) 1,000 unit tablet PO SCH (09:03)
[2019-08-30] MEDS: docusate sod 100mg capsule PO SCH ×2 (09:03→20:44)
[2019-08-30] MEDS: duloxetine 30mg CAPSULE.DR PO SCH (09:03)
[2019-08-30] MEDS: sennosides/docusate sodium tablet PO SCH ×2 (09:03→20:45)
[2019-08-30] MEDS: gabapentin 100mg capsule PO SCH ×2 (09:04→20:44)
[2019-08-30] MEDS: vitamin B comp w/Vit. C tab 1 TAB TABLET PO SCH (09:05)
[2019-08-30] MEDS: cyanocobalamin 500mcg tablet PO SCH (09:05)
[2019-08-30] MEDS: metFORMIN 500mg tablet PO SCH ×2 (09:05→20:45)
[2019-08-30] MEDS: busPIRone 5mg tablet PO SCH ×2 (09:05→20:44)
[2019-08-30 09:14] LABS: BASOPHILS % (AUTO) 0.2 % (0-1); EOSINOPHILS % (AUTO) 0 % (0-6); HEMATOCRIT 34.6 % (35.0-45.0); HEMOGLOBIN 11.7 g/dl (12.0-16.0); LYMPHOCYTES # (AUTO) 2.8 X10'3 (1.1-4.8); LYMPHOCYTES % (AUTO) 20.8 % (21-51); MEAN CORPUSCULAR HEMOGLOBIN 28.6 PG (27.0-31.0); MEAN CORPUSCULAR HGB CONC 33.8 g/dL (33.0-36.5); MEAN CORPUSCULAR VOLUME 84.6 FL (78-98); MEAN PLATELET VOLUME 7.9 FL (7.4-10.4); MONOCYTES # (AUTO) 1.1 X10'3 (0-0.9); MONOCYTES % (AUTO) 7.8 % (2-12); NEUTROPHILS # (AUTO) 9.7 X10'3 (1.8-7.7); NEUTROPHILS % (AUTO) 71.2 % (42-75); PLATELET COUNT 287 X10'3 (140-440); RED BLOOD COUNT 4.08 X10'6 (4.20-5.60); RED CELL DISTRIBUTION WIDTH 13.8 % (11.5-14.5); WHITE BLOOD COUNT 13.6 X10'3 (4.5-11.0)
[2019-08-30 09:40] LABS: CHLORIDE 106 MMOL/L (99-107); TOTAL CARBON DIOXIDE 24.4 MMOL/L (24-32)
[2019-08-30 09:41] LABS: ANION GAP 9 (8-16); SODIUM 139 MMOL/L (135-145)
[2019-08-30] MEDS ORDERED: proCHLORperazine 10 MG/2 ml inj IV ONE (11:15)
[2019-08-30] MEDS ORDERED: tPA-cathflo 2 MG/2 ml IV flush IVF ONE ×2 (11:20→11:40)
--- NOTE | 2019-08-30 12:10 | NUR ---
DM consult: Pt with A1c 6.5, DM education not warranted at this time. Will continue to follow. Addendum: 08/30/19 at [address] Amended: Links added.
[2019-08-30] MEDS: folic acid 0.4mg tablet PO SCH (13:57)
[2019-08-30] MEDS: acetaminophen 325mg tablet PO PRN (13:58)
--- NOTE | 2019-08-30 17:28 | NUR ---
I let activase dwell 1 and 1/2 hours, I got blood return back of 5 ml's and dumped it, but it was still hard to flush after that.
--- NOTE | 2019-08-30 18:30 | NUR ---
Problems reprioritized. Patient report given, questions answered & plan of care reviewed with Pauline STYLES.
--- NOTE | 2019-08-30 18:51 | NUR ---
Patient in room [facility]TH[facility] 4015. I have received report from Mylene STYLES and had the opportunity to ask questions and assume patient care.
[2019-08-30] MEDS: metoprolol succinate 25mg (24-HOUR) SR. Tablet PO SCH (20:45)
[2019-08-30] MEDS: tizanidine 4mg tablet PO PRN (21:00)
[2019-08-31] MEDS: HYDROmorphone/NS 1 mg/ml CADD 50 ML IV SCH ×11 (01:00→23:00)
[2019-08-31] MEDS: normal saline 1000ml 1,000 ML IV SCH ×3 (03:49→17:35)
--- NOTE | 2019-08-31 03:55 | NUR ---
ZANAFLEX GIVEN WITH HS MEDS AT 2100. NOTED IT DID NOT SCAN. PERFORMED AN UNSCHEDULED ADMINISTRATION TO ACCOUNT FOR MED GIVEN
--- NOTE | 2019-08-31 04:24 | NUR ---
0300 C/O "FEELING HOT", TEMP TAKEN, AND WAS 100.0, ENC'D TO USE [employer] SPIROMETER AND DB&C. STATED UNDERSTANDING. RE CHECKED TEMP AT O415, PATIENT STATED "FEELING BETTER", BUT TEMP. STILL AT 100. CONTINUE TO MONITOR AND WILL ADMINISTER TYLENOL IF NEEDED
[2019-08-31 06:00] VITALS: BP 108/61
--- NOTE | 2019-08-31 06:53 | NUR ---
REPORT TO MOISÉS STYLES
[2019-08-31 06:54] LABS: BASOPHILS % (AUTO) 0.2 % (0-1); EOSINOPHILS # (AUTO) 0.1 X10'3 (0-0.9); EOSINOPHILS % (AUTO) 1.1 % (0-6); HEMATOCRIT 29.5 % (35.0-45.0); HEMOGLOBIN 9.9 g/dl (12.0-16.0); LYMPHOCYTES # (AUTO) 4.4 X10'3 (1.1-4.8); LYMPHOCYTES % (AUTO) 32.7 % (21-51); MEAN CORPUSCULAR HEMOGLOBIN 27.8 PG (27.0-31.0); MEAN CORPUSCULAR HGB CONC 33.5 g/dL (33.0-36.5); MEAN CORPUSCULAR VOLUME 83.1 FL (78-98); MEAN PLATELET VOLUME 7.8 FL (7.4-10.4); MONOCYTES # (AUTO) 1.1 X10'3 (0-0.9); MONOCYTES % (AUTO) 8.4 % (2-12); NEUTROPHILS # (AUTO) 7.8 X10'3 (1.8-7.7); NEUTROPHILS % (AUTO) 57.6 % (42-75); PLATELET COUNT 291 X10'3 (140-440); RED BLOOD COUNT 3.55 X10'6 (4.20-5.60); RED CELL DISTRIBUTION WIDTH 13.7 % (11.5-14.5); WHITE BLOOD COUNT 13.5 X10'3 (4.5-11.0)
[2019-08-31 07:08] LABS: ANION GAP 6 (8-16); CHLORIDE 104 MMOL/L (99-107); POTASSIUM 3.4 MMOL/L (3.5-5.1); SODIUM 138 MMOL/L (135-145); TOTAL CARBON DIOXIDE 27.7 MMOL/L (24-32)
[2019-08-31] MEDS: vitamin D (cholecalciferol) 1,000 unit tablet PO SCH (08:00)
[2019-08-31] MEDS: cyanocobalamin 500mcg tablet PO SCH (08:00)
[2019-08-31 09:00] VITALS: BP 109/56
[2019-08-31] MEDS: vitamin B comp w/Vit. C tab 1 TAB TABLET PO SCH (09:28)
[2019-08-31] MEDS: duloxetine 30mg CAPSULE.DR PO SCH (09:29)
[2019-08-31] MEDS: metFORMIN 500mg tablet PO SCH ×2 (09:29→20:24)
[2019-08-31] MEDS: docusate sod 100mg capsule PO SCH ×2 (09:29→20:23)
[2019-08-31] MEDS: sennosides/docusate sodium tablet PO SCH ×2 (09:29→20:00)
[2019-08-31] MEDS: gabapentin 100mg capsule PO SCH ×2 (09:29→20:24)
[2019-08-31] MEDS: busPIRone 5mg tablet PO SCH ×2 (09:30→20:24)
[2019-08-31] MEDS: folic acid 0.4mg tablet PO SCH (09:30)
[2019-08-31] MEDS: levoTHYROXINE 125mcg tablet PO SCH (09:30)
[2019-08-31] MEDS: lisinopril 10 MG tablet PO SCH (09:35)
[2019-08-31] MEDS: cloNIDine 0.1 mg tablet PO SCH ×2 (09:36→20:00)
--- NOTE | 2019-08-31 09:43 | NUR ---
Call out to Dr. Ramos, for patients Nexium and NANDO Drain clarification.
--- NOTE | 2019-08-31 09:46 | NUR ---
Received orders from Dr. Ramos, leave NANDO drain in until tomorrow. Ok to continue Nexium.
[2019-08-31] MEDS: NEXIUM 40MG CAPSULE PO SCH (10:43)
[2019-08-31] MEDS: ondansetron/PF 4mg/2ml inj IV PRN (11:41)
[2019-08-31] MEDS: acetaminophen 325mg tablet PO PRN ×2 (12:35→18:49)
--- NOTE | 2019-08-31 13:30 | NUR ---
Call out to Dr Ramos re: patients severe headache. Tylenol ineffective.
[2019-08-31] MEDS: proCHLORperazine 10 MG/2 ml inj IV PRN ×2 (13:55→22:47)
[2019-08-31 18:00] VITALS: BP 96/59
[2019-08-31 22:00] VITALS: BP 104/57
[2019-08-31] MEDS: metoprolol succinate 25mg (24-HOUR) SR. Tablet PO SCH (23:01)
[2019-09-01] MEDS: normal saline 1000ml 1,000 ML IV SCH ×2 (00:55→10:55)
[2019-09-01] MEDS: HYDROmorphone/NS 1 mg/ml CADD 50 ML IV SCH ×6 (01:00→11:00)
[2019-09-01] MEDS: acetaminophen 325mg tablet PO PRN ×2 (02:33→07:42)
[2019-09-01 06:00] VITALS: BP 111/62
[2019-09-01 06:36] LABS: BASOPHILS % (AUTO) 0.4 % (0-1); EOSINOPHILS # (AUTO) 0.2 X10'3 (0-0.9); EOSINOPHILS % (AUTO) 2.2 % (0-6); HEMATOCRIT 27.1 % (35.0-45.0); HEMOGLOBIN 9.5 g/dl (12.0-16.0); LYMPHOCYTES # (AUTO) 3.4 X10'3 (1.1-4.8); LYMPHOCYTES % (AUTO) 34.8 % (21-51); MEAN CORPUSCULAR HEMOGLOBIN 29.2 PG (27.0-31.0); MEAN CORPUSCULAR VOLUME 83.3 FL (78-98); MEAN PLATELET VOLUME 7.6 FL (7.4-10.4); MONOCYTES # (AUTO) 0.6 X10'3 (0-0.9); MONOCYTES % (AUTO) 6.5 % (2-12); NEUTROPHILS # (AUTO) 5.5 X10'3 (1.8-7.7); NEUTROPHILS % (AUTO) 56.1 % (42-75); PLATELET COUNT 252 X10'3 (140-440); RED BLOOD COUNT 3.25 X10'6 (4.20-5.60); RED CELL DISTRIBUTION WIDTH 13.8 % (11.5-14.5); WHITE BLOOD COUNT 9.9 X10'3 (4.5-11.0)
[2019-09-01 06:49] LABS: ANION GAP 5 (8-16); CHLORIDE 104 MMOL/L (99-107); POTASSIUM 3.6 MMOL/L (3.5-5.1); SODIUM 140 MMOL/L (135-145); TOTAL CARBON DIOXIDE 30.8 MMOL/L (24-32)
--- NOTE | 2019-09-01 07:25 | NUR ---
Left message with Dr. Ramos, regarding 04/24 GRUBBS.
[2019-09-01] MEDS: busPIRone 5mg tablet PO SCH ×2 (08:34→19:59)
[2019-09-01] MEDS: metFORMIN 500mg tablet PO SCH ×2 (08:34→19:48)
[2019-09-01] MEDS: folic acid 0.4mg tablet PO SCH (08:34)
[2019-09-01] MEDS: cloNIDine 0.1 mg tablet PO SCH ×2 (08:34→19:48)
[2019-09-01] MEDS: duloxetine 30mg CAPSULE.DR PO SCH (08:34)
[2019-09-01] MEDS: docusate sod 100mg capsule PO SCH ×2 (08:34→19:48)
[2019-09-01] MEDS: gabapentin 100mg capsule PO SCH ×2 (08:34→19:59)
[2019-09-01] MEDS: sennosides/docusate sodium tablet PO SCH ×2 (08:35→19:48)
[2019-09-01] MEDS: vitamin B comp w/Vit. C tab 1 TAB TABLET PO SCH (08:35)
[2019-09-01] MEDS: cyanocobalamin 500mcg tablet PO SCH (08:35)
[2019-09-01] MEDS: vitamin D (cholecalciferol) 1,000 unit tablet PO SCH (08:35)
[2019-09-01] MEDS: lisinopril 10 MG tablet PO SCH (08:37)
[2019-09-01] MEDS: NEXIUM 40MG CAPSULE PO SCH (08:42)
[2019-09-01] MEDS: levoTHYROXINE 125mcg tablet PO SCH (08:44)
[2019-09-01] MEDS ORDERED: oxyCODONE/APAP 10/325mg tablet PO PRN (09:20)
--- NOTE | 2019-09-01 09:36 | NUR ---
PATIENT TO CT SCAN.
--- NOTE | 2019-09-01 09:53 | NUR ---
PATIENT BACK FROM CT AND IN THE BATHROOM
[2019-09-01 10:00] VITALS: BP 113/70
--- NOTE | 2019-09-01 10:28 | NUR ---
RADIOLOGIST CALLED TO SPEAK WITH DR ALBA ABOUT RESULTS. CELL PHONE NUMBER GIVEN. WILL CONTINUE TO MONITOR.
[2019-09-01] MEDS: oxyCODONE/APAP 10/325mg tablet PO PRN ×3 (10:49→19:49)
--- NOTE | 2019-09-01 11:30 | NUR ---
DR. ALBA INTO SEE PATIENT NO NEW ORDERS.
[2019-09-01] MEDS ORDERED: proparacaine 0.5% ophthalmic drops 15ml EACHEYE ONE (12:35)
[2019-09-01] MEDS: proCHLORperazine 10 MG/2 ml inj IV PRN (13:15)
[2019-09-01] MEDS: tizanidine 4mg tablet PO PRN ×2 (13:16→21:11)
[2019-09-01 15:00] VITALS: BP 115/66
[2019-09-01 18:00] VITALS: BP 115/66
--- NOTE | 2019-09-01 18:45 | NUR ---
Problems reprioritized. Patient report given, questions answered & plan of care reviewed with JESSA STYLES.
[2019-09-01] MEDS: metoprolol succinate 25mg (24-HOUR) SR. Tablet PO SCH (20:04)
[2019-09-02] MEDS: oxyCODONE/APAP 10/325mg tablet PO PRN ×5 (02:01→23:02)
[2019-09-02] MEDS: tizanidine 4mg tablet PO PRN ×3 (05:13→20:15)
[2019-09-02] MEDS: normal saline 1000ml 1,000 ML IV SCH ×3 (05:25→14:56)
--- NOTE | 2019-09-02 05:35 | NUR ---
NANDO DRAIN LEAKING ,PULLED OUT WITHOUT ANY COMPLICATION,PT TOLERATED PROCEDURE.
--- NOTE | 2019-09-02 05:45 | NUR ---
INFORMED ELLY CLAUDIO ABOUT THE DRAIN NO NEW ORDER.
[2019-09-02 06:00] VITALS: BP 107/70
[2019-09-02 06:11] LABS: BASOPHILS % (AUTO) 0.4 % (0-1); EOSINOPHILS # (AUTO) 0.3 X10'3 (0-0.9); HEMATOCRIT 26.3 % (35.0-45.0); HEMOGLOBIN 9.1 g/dl (12.0-16.0); LYMPHOCYTES # (AUTO) 3.7 X10'3 (1.1-4.8); LYMPHOCYTES % (AUTO) 38.8 % (21-51); MEAN CORPUSCULAR HEMOGLOBIN 28.9 PG (27.0-31.0); MEAN CORPUSCULAR HGB CONC 34.5 g/dL (33.0-36.5); MEAN CORPUSCULAR VOLUME 83.8 FL (78-98); MEAN PLATELET VOLUME 7.9 FL (7.4-10.4); MONOCYTES # (AUTO) 0.6 X10'3 (0-0.9); MONOCYTES % (AUTO) 6.3 % (2-12); NEUTROPHILS % (AUTO) 51.5 % (42-75); PLATELET COUNT 272 X10'3 (140-440); RED BLOOD COUNT 3.14 X10'6 (4.20-5.60); RED CELL DISTRIBUTION WIDTH 13.9 % (11.5-14.5); WHITE BLOOD COUNT 9.6 X10'3 (4.5-11.0)
[2019-09-02 06:18] LABS: ANION GAP 4 (8-16); CHLORIDE 106 MMOL/L (99-107); POTASSIUM 3.2 MMOL/L (3.5-5.1); SODIUM 142 MMOL/L (135-145); TOTAL CARBON DIOXIDE 31.9 MMOL/L (24-32)
--- NOTE | 2019-09-02 06:30 | NUR ---
Patient in room [facility]TH[facility] 4015. I have received report from JENSEN Ventura and had the opportunity to ask questions and assume patient care.
[2019-09-02] MEDS: proCHLORperazine 10 MG/2 ml inj IV PRN (08:13)
[2019-09-02] MEDS ORDERED: potassium Cl 20 mEq SR tablet PO PRN (08:55)
[2019-09-02] MEDS: HYDROmorphone 1 mg/ml syringe IV PRN ×3 (09:19→20:16)
[2019-09-02] MEDS: busPIRone 5mg tablet PO SCH ×2 (09:33→20:12)
[2019-09-02] MEDS: duloxetine 30mg CAPSULE.DR PO SCH (09:33)
[2019-09-02] MEDS: folic acid 0.4mg tablet PO SCH (09:33)
[2019-09-02] MEDS: docusate sod 100mg capsule PO SCH ×2 (09:33→20:00)
[2019-09-02] MEDS: sennosides/docusate sodium tablet PO SCH ×2 (09:34→20:00)
[2019-09-02] MEDS: vitamin B comp w/Vit. C tab 1 TAB TABLET PO SCH (09:34)
[2019-09-02] MEDS: metFORMIN 500mg tablet PO SCH ×2 (09:34→20:15)
[2019-09-02] MEDS: NEXIUM 40MG CAPSULE PO SCH (09:34)
[2019-09-02] MEDS: gabapentin 100mg capsule PO SCH ×2 (09:34→20:15)
[2019-09-02] MEDS: cyanocobalamin 500mcg tablet PO SCH (09:35)
[2019-09-02] MEDS: levoTHYROXINE 125mcg tablet PO SCH (09:35)
[2019-09-02] MEDS: lisinopril 10 MG tablet PO SCH (09:36)
[2019-09-02] MEDS: vitamin D (cholecalciferol) 1,000 unit tablet PO SCH (09:36)
[2019-09-02] MEDS: cloNIDine 0.1 mg tablet PO SCH ×2 (09:36→20:15)
[2019-09-02] MEDS: potassium Cl 20 mEq SR tablet PO PRN ×3 (09:37→20:15)
[2019-09-02] MEDS: K and/or MAG REPLACEMENT MC SCH ×2 (09:46→23:28)
[2019-09-02 10:00] VITALS: BP 115/69
[2019-09-02 18:00] VITALS: BP 144/81
--- NOTE | 2019-09-02 18:15 | NUR ---
Patient in room ORTH[facility] 4015. I have received report from Radha and had the opportunity to ask questions and assume patient care.
--- NOTE | 2019-09-02 18:27 | NUR ---
Problems reprioritized. Patient report given, questions answered & plan of care reviewed with JENSEN Perez.
[2019-09-02] MEDS: metoprolol succinate 25mg (24-HOUR) SR. Tablet PO SCH (20:15)
--- NOTE | 2019-09-02 21:55 | NUR ---
Patient in room ORTH[facility] 4015. I have received report from Saturnino. and had the opportunity to ask questions and assume patient care. The patient is alert, oriented X4. Not complaining of the pain at this time. Addendum: 09/02/19 at 2212 by Chris Remy RN Problems reprioritized. Patient report [id number], questions answered & plan of care reviewed with. Patient is alert, oriented.
--- NOTE | 2019-09-02 22:15 | NUR ---
Patient in room [facility]TH[facility] 4015. I have received report from Chris STYLES and had the opportunity to ask questions and assume patient care. Pt was just up to the bathroom. She is back in bed, on R/A with NS running @ 100 mls/hr. She has no signs of distress, will continue to monitor.
[2019-09-03] VITALS: BP 126/74
[2019-09-03] MEDS: normal saline 1000ml 1,000 ML IV SCH (00:06)
[2019-09-03] MEDS: HYDROmorphone 1 mg/ml syringe IV PRN ×3 (01:10→10:33)
[2019-09-03] MEDS: oxyCODONE/APAP 10/325mg tablet PO PRN ×3 (02:50→12:01)
[2019-09-03] MEDS: tizanidine 4mg tablet PO PRN ×2 (04:23→12:32)
[2019-09-03 06:00] VITALS: BP 133/79
--- NOTE | 2019-09-03 06:42 | NUR ---
Problems reprioritized. Patient report given, questions answered & plan of care reviewed with Talisha STYLES.
--- NOTE | 2019-09-03 06:49 | NUR ---
Patient in room [facility]TH[facility] 4015. I have received report from JENSEN Peterson and had the opportunity to ask questions and assume patient care.
[2019-09-03] MEDS: vitamin D (cholecalciferol) 1,000 unit tablet PO SCH (07:53)
[2019-09-03] MEDS: duloxetine 30mg CAPSULE.DR PO SCH (07:55)
[2019-09-03] MEDS: folic acid 0.4mg tablet PO SCH (07:56)
[2019-09-03] MEDS: busPIRone 5mg tablet PO SCH (07:56)
[2019-09-03] MEDS: vitamin B comp w/Vit. C tab 1 TAB TABLET PO SCH (07:56)
[2019-09-03] MEDS: levoTHYROXINE 125mcg tablet PO SCH (07:56)
[2019-09-03] MEDS: gabapentin 100mg capsule PO SCH (07:56)
[2019-09-03] MEDS: cloNIDine 0.1 mg tablet PO SCH (07:56)
[2019-09-03] MEDS: cyanocobalamin 500mcg tablet PO SCH (07:56)
[2019-09-03] MEDS: metFORMIN 500mg tablet PO SCH (07:56)
[2019-09-03] MEDS: NEXIUM 40MG CAPSULE PO SCH (07:57)
[2019-09-03] MEDS: lisinopril 10 MG tablet PO SCH (07:57)
[2019-09-03] MEDS: K and/or MAG REPLACEMENT MC SCH (08:00)
[2019-09-03] MEDS: docusate sod 100mg capsule PO SCH (08:00)
[2019-09-03] MEDS: sennosides/docusate sodium tablet PO SCH (08:00)
[2019-09-03] MEDS: proCHLORperazine 10 MG/2 ml inj IV PRN (08:29)
[2019-09-03 10:00] VITALS: BP 107/82
[2019-09-03] MEDS ORDERED: OXYC-511 PO (10:35)
--- NOTE | 2019-09-03 11:18 | NUR ---
Gave patients the prescription for Percocet. Pt and state they want to take the prescription in now so that when patient gets home she has her medications. I okayed this with Radha Rockwell RN, that is was permissible to give patients the prescription. Addendum: 09/03/19 at 1121 by Talisha Muro RN logged under wrong person
--- NOTE | 2019-09-03 11:21 | NUR ---
Gave patients the prescription for Percocet. Pt and state they want to take the prescription in now so that when patient gets home she has her medications. I okayed this with Radha Rockwell RN, that is was permissible to give patients the prescription.
--- NOTE | 2019-09-03 11:45 | NUR ---
pt. resting but is visibly uncomfortable. pain is not managed well with the doses and timing of the medications. per conversation with Dr. Ramos, will discuss with CARDROOM MANAGER before discharge. Addendum: 09/03/19 at 1147 by Talisha Muro RN Amended: Links added.
[2019-09-03] MEDS ORDERED: OXYC10TA86 PO (12:25)
--- NOTE | 2019-09-03 14:24 | NUR ---
pt. discharged from facility at 1315. pt. understood and signed all paperwork. pt. was wheeled down to private vehicle accompanied by staff and significant other. pt. IV was d/c intact. pt. was handed scripts for her narcotics to fill and understand to make f/u appointments with her doctors. pt. left with all belongings.
== END 2019-09-03 13:15 | disposition home or self-care (01) | DRG 460 ==
LOC: PAS IN 09:29 → EDSTATUS 12:00 → ORTHO 4S 23:25
PROVIDERS: ADMIT Orthopaedic Surgery Orthopaedic Surgery of the Spine; ATTEND Orthopaedic Surgery Orthopaedic Surgery of the Spine
PROC: 4A133B1 Monitoring of Arterial Pressure, Peripheral, Percutaneous Approach (ICD-10-PCS; 2019-08-29)
PROC: 4A133J1 Monitoring of Arterial Pulse, Peripheral, Percutaneous Approach (ICD-10-PCS; 2019-08-29)
PROC: 05HY33Z Insertion of Infusion Device into Upper Vein, Percutaneous Approach (ICD-10-PCS; 2019-08-29)
PROC: 0SG00AJ Fusion of Lumbar Vertebral Joint with Interbody Fusion Device, Posterior Approach, Anterior Column, Open Approach (ICD-10-PCS; 2019-08-29)
PROC: 0QP004Z Removal of Internal Fixation Device from Lumbar Vertebra, Open Approach (ICD-10-PCS; 2019-08-29)
PROC: 0SB20ZZ Excision of Lumbar Vertebral Disc, Open Approach (ICD-10-PCS; 2019-08-29)
PROC: 01NB0ZZ Release Lumbar Nerve, Open Approach (ICD-10-PCS; 2019-08-29)
PROC: 0QP104Z Removal of Internal Fixation Device from Sacrum, Open Approach (ICD-10-PCS; 2019-08-29)
PROC: 0QH104Z Insertion of Internal Fixation Device into Sacrum, Open Approach (ICD-10-PCS; 2019-08-29)
PROC: 03HY32Z Insertion of Monitoring Device into Upper Artery, Percutaneous Approach (ICD-10-PCS; principal; 2019-08-29 12:48)
DX: M51.36 Other intervertebral disc degeneration, lumbar region (principal); D62 Acute posthemorrhagic anemia; M54.16 Radiculopathy, lumbar region; E03.9 Hypothyroidism, unspecified; E11.9 Type 2 diabetes mellitus without complications; I10 Essential (primary) hypertension; F32.9 Major depressive disorder, single episode, unspecified; F41.9 Anxiety disorder, unspecified; G43.909 Migraine, unspecified, not intractable, without status migrainosus; Z90.49 Acquired absence of other specified parts of digestive tract; Z88.2 Allergy status to sulfonamides; Z91.040 Latex allergy status
CPT/HCPCS: Z7506; Z7508; 36415; 70450; 71045; 72100; 76000; 76937; 80051; 80053; 82948; 84443; 85025; 86885; 86900; 86901; 97116; 97161; 97530; A4215; A4338; A4618; A6196; A6258; A6402; A6449; A7000; C1713; C1758; C9399; G0378; J0131; J0690; J0780; J1100; J1170; J1644; J1885; J2001; J2250; J2370; J2405; J2704; J2997; J3010; J3370; J3490; J7030; J7040; J7120; P9045; Q9968

== ENCOUNTER 2019-11-04 08:53 | Outpatient (CLI) | payer OTHER ==
[~2019-11-04 08:53] MED LIST changes: -DOCUMENT DATE & TIME OF BETA-BLOCKER PO ONE; -METF-436 PO; +METF-516 PO; -ONDA8TAB62 PO; +OXYC-511 PO; +OXYC10TA86 PO
[2019-11-04] MEDS ORDERED: iohexol 300mg/ml 100ml inj. ONE (09:05)
== END 2019-11-04 23:59 | disposition home or self-care (01) ==
LOC: 64 CT 08:53
PROVIDERS: ATTEND Ophthalmology
DX: R51 Headache (principal)
CPT/HCPCS: 70482; 76937; Q9967

== ENCOUNTER 2019-11-04 10:41 | Outpatient (CLI) | payer OTHER | END 2019-11-04 23:59 | disposition home or self-care (01) | LOC: RAD 10:41 | PROVIDERS: ATTEND Orthopaedic Surgery Orthopaedic Surgery of the Spine | DX: Z98.1 Arthrodesis status (principal) | CPT/HCPCS: 72100 ==

== ENCOUNTER 2019-12-16 15:01 | Outpatient (CLI) | payer OTHER | END 2019-12-16 23:59 | disposition home or self-care (01) | LOC: RAD 15:01 | PROVIDERS: ATTEND Family Medicine | DX: M25.511 Pain in right shoulder (principal) | CPT/HCPCS: 73030 ==

== ENCOUNTER 2019-12-16 15:07 | Outpatient (CLI) | payer OTHER | END 2019-12-16 23:59 | disposition home or self-care (01) | LOC: RAD 15:07 | PROVIDERS: ATTEND Orthopaedic Surgery Orthopaedic Surgery of the Spine | DX: M43.26 Fusion of spine, lumbar region (principal) | CPT/HCPCS: 72100 ==

== ENCOUNTER 2020-02-06 15:07 | Outpatient (CLI) | payer BC, OTHER ==
[2020-02-07] MEDS ORDERED: GADOTERATE MEGLUMINE 7.5 MMOL/15 ML VIAL IV ONE (15:30)
== END 2020-02-06 23:59 | disposition home or self-care (01) ==
LOC: RAD 15:07
PROVIDERS: ATTEND Anesthesiology Pain Medicine
DX: M54.5 Low back pain (principal); M54.16 Radiculopathy, lumbar region; M96.1 Postlaminectomy syndrome, not elsewhere classified; G89.4 Chronic pain syndrome
CPT/HCPCS: 72158; A9575

== ENCOUNTER → 2020-02-13 | Outpatient (CLI) | payer BC ==
[2020-02-13 12:56] LABS: BASOPHILS # (AUTO) 0.1 X10'3 (0-0.2); BASOPHILS % (AUTO) 0.5 % (0-1); EOSINOPHILS # (AUTO) 0.2 X10'3 (0-0.9); EOSINOPHILS % (AUTO) 1.5 % (0-6); HEMATOCRIT 40.8 % (35.0-45.0); HEMOGLOBIN 12.9 g/dl (12.0-16.0); LYMPHOCYTES % (AUTO) 46.8 % (21-51); MEAN CORPUSCULAR HEMOGLOBIN 23.2 PG (27.0-31.0); MEAN CORPUSCULAR HGB CONC 31.6 g/dL (33.0-36.5); MEAN CORPUSCULAR VOLUME 73.5 FL (78-98); MEAN PLATELET VOLUME 8.1 FL (7.4-10.4); MONOCYTES # (AUTO) 0.6 X10'3 (0-0.9); MONOCYTES % (AUTO) 5.4 % (2-12); NEUTROPHILS # (AUTO) 4.9 X10'3 (1.8-7.7); NEUTROPHILS % (AUTO) 45.8 % (42-75); PLATELET COUNT 474 X10'3 (140-440); RED BLOOD COUNT 5.55 X10'6 (4.20-5.60); RED CELL DISTRIBUTION WIDTH 18.9 % (11.5-14.5); WHITE BLOOD COUNT 10.7 X10'3 (4.5-11.0)
[2020-02-13 13:06] LABS: ALANINE AMINOTRANSFERASE 21 U/L (12-78); ALBUMIN 4.3 G/DL (3.4-5.0); ALKALINE PHOSPHATASE 111 IU/L (46-116); ANION GAP 8 (8-16); ASPARTATE AMINO TRANSFERASE 13 U/L (10-37); BILIRUBIN,TOTAL 0.3 MG/DL (0.1-1.0); BLOOD UREA NITROGEN 13 MG/DL (7-18); BUN/CREATININE RATIO 17.8 (6.6-38.0); C-REACTIVE PROTEIN 0.37 MG/DL (0.0-0.5); CALCIUM 9.6 MG/DL (8.5-10.1); CHLORIDE 101 MMOL/L (99-107); CREATININE 0.73 MG/DL (0.40-0.90); GLUCOSE 125 MG/DL (70-104); POTASSIUM 4.1 MMOL/L (3.5-5.1); SODIUM 136 MMOL/L (135-145); TOTAL PROTEIN 8.7 G/DL (6.4-8.2); eGFR 87 ML/MIN
[2020-02-13 14:11] LABS: ANISOCYTOSIS 2+; HYPOCHROMASIA 1+; MICROCYTOSIS 1+; PLATELET ESTIMATE INCREASED; POLYCHROMASIA 1+
== END | disposition home or self-care (01) ==
LOC: LAB 11:35
PROVIDERS: ATTEND Family Medicine
DX: E11.9 Type 2 diabetes mellitus without complications (principal)
CPT/HCPCS: 36415; 80053; 85025; 86140

== ENCOUNTER 2020-02-14 12:27 | Emergency (ER) | payer BC ==
[~2020-02-14] VITALS: Ht 165.1 cm; Wt 109.1 kg
[2020-02-14] MEDS ORDERED: ondansetron/PF 4mg/2ml inj IV ONE (13:15)
[2020-02-14] MEDS ORDERED: HYDROmorphone 1 mg/ml syringe IV ONE (13:15)
[2020-02-14] MEDS ORDERED: LIDOcaine 2% 10ml TOPICAL JELLY (Urojet) TP ONE (13:15)
[2020-02-14] MEDS ORDERED: vancomycin/NS 1 GM ADD-VANTAGE 250 ML IV ONE (13:20)
[2020-02-14] MEDS ORDERED: CefTRIAXone 2gm/D5W 50ml 50 ML IV ONE (13:20)
[2020-02-14] MEDS ORDERED: CefTRIAXone inj 2,000 MG in normal saline 100ml IV soln 100 ML IV ONE (13:30)
[2020-02-14 13:51] LABS: BASOPHILS # (AUTO) 0.1 X10'3 (0-0.2); BASOPHILS % (AUTO) 0.7 % (0-1); EOSINOPHILS # (AUTO) 0.1 X10'3 (0-0.9); EOSINOPHILS % (AUTO) 1.3 % (0-6); HEMATOCRIT 37.8 % (35.0-45.0); HEMOGLOBIN 12.1 g/dl (12.0-16.0); LYMPHOCYTES % (AUTO) 44.2 % (21-51); MEAN CORPUSCULAR HEMOGLOBIN 23.4 PG (27.0-31.0); MEAN CORPUSCULAR HGB CONC 31.9 g/dL (33.0-36.5); MEAN CORPUSCULAR VOLUME 73.5 FL (78-98); MONOCYTES # (AUTO) 0.7 X10'3 (0-0.9); MONOCYTES % (AUTO) 6.2 % (2-12); NEUTROPHILS # (AUTO) 5.4 X10'3 (1.8-7.7); NEUTROPHILS % (AUTO) 47.6 % (42-75); PLATELET COUNT 484 X10'3 (140-440); RED BLOOD COUNT 5.14 X10'6 (4.20-5.60); RED CELL DISTRIBUTION WIDTH 18.7 % (11.5-14.5); WHITE BLOOD COUNT 11.3 X10'3 (4.5-11.0)
[2020-02-14 14:05] LABS: ALANINE AMINOTRANSFERASE 19 U/L (12-78); ALBUMIN 4.2 G/DL (3.4-5.0); ALKALINE PHOSPHATASE 108 IU/L (46-116); ANION GAP 9 (8-16); ASPARTATE AMINO TRANSFERASE 10 U/L (10-37); BILIRUBIN,TOTAL 0.3 MG/DL (0.1-1.0); BLOOD UREA NITROGEN 11 MG/DL (7-18); BUN/CREATININE RATIO 13.1 (6.6-38.0); CALCIUM 9.5 MG/DL (8.5-10.1); CHLORIDE 101 MMOL/L (99-107); CREATININE 0.84 MG/DL (0.40-0.90); GLUCOSE 113 MG/DL (70-104); MAGNESIUM 1.9 MG/DL (1.5-2.4); SODIUM 136 MMOL/L (135-145); TOTAL CARBON DIOXIDE 26.1 MMOL/L (24-32); TOTAL PROTEIN 8.4 G/DL (6.4-8.2); eGFR 74 ML/MIN
[2020-02-14 14:10] LABS: ANISOCYTOSIS 2+; MICROCYTOSIS 1+; PLATELET ESTIMATE NORMAL; POIKILOCYTOSIS FEW; POLYCHROMASIA FEW
[2020-02-14] MEDS ORDERED: normal saline 1000ML IV soln IV ONE (14:15)
[2020-02-14] MEDS ORDERED: dexamethasone sod phosphate 10mg/ml inj IV STA (14:15)
[2020-02-14 14:30] LABS: CLARITY,URINE SLIGHTLY CLOUDY (Clear); COLOR,URINE STRAW (Yellow); GLUCOSE, URINE NEGATIVE (Neg); KETONES,URINE NEGATIVE (Neg); LEUKOCYTE ESTERASE ,URINE NEGATIVE (Neg); NITRITES, URINE NEGATIVE (Neg); OCCULT BLOOD,URINE NEGATIVE (Neg); PROTEIN,URINE NEGATIVE (Neg); UROBILINOGEN,URINE 0.2 E.U/dL (0.2-1.0)
[2020-02-14 14:31] LABS: URINE HCG NEGATIVE (NEG)
[2020-02-14 14:34] LABS: UA COLLECTION TYPE CLN CATCH MIDSTREAM
[2020-02-14 14:35] LABS: BACTERIA,URINE FEW /HPF (Neg); MUCUS STRANDS NONE SEEN /LPF (Neg); RBC,URINE 0-2 /HPF (0-2); SQUAMOUS EPITHELIAL CELL,UR MANY /LPF (FEW); WBC,URINE 0-4 /HPF (0-4)
[2020-02-14] MEDS ORDERED: HYDROmorphone 1 mg/ml syringe IV PRN (15:40)
[2020-02-14 17:02] VITALS: BP 128/70
== END 2020-02-14 17:06 | disposition short-term general hospital (02) ==
LOC: ER 12:28
DX: G06.1 Intraspinal abscess and granuloma (principal); M60.88 Other myositis, other site; R53.1 Weakness; M54.5 Low back pain; K62.89 Other specified diseases of anus and rectum; K21.9 Gastro-esophageal reflux disease without esophagitis; E03.9 Hypothyroidism, unspecified; G89.29 Other chronic pain; Z98.890 Other specified postprocedural states; Z88.2 Allergy status to sulfonamides; Z88.5 Allergy status to narcotic agent; Z91.040 Latex allergy status; Z79.899 Other long term (current) drug therapy
CPT/HCPCS: 36415; 80053; 81001; 81025; 83605; 83735; 84145; 85025; 87040; 96365; 96366; 96375; 96376; 99285; J0696; J1100; J1170; J2405; J3370; J7030

== ENCOUNTER 2020-03-05 13:23 | Emergency (ER) | payer BC ==
[~2020-03-05] VITALS: Ht 165.1 cm; Wt 106.8 kg
[~2020-03-05 13:23] MED LIST changes: -OXYC-511 PO; +OXYC1TAB17 PO
[2020-03-05] MEDS ORDERED: clindamycin phosphate inj 600 MG in normal saline 50ml IV soln 50 ML IV ONE (15:05)
[2020-03-05] MEDS ORDERED: clindamycin 600mg/D5W 50ml 50 ML IV ONE (15:05)
[2020-03-05] MEDS ORDERED: normal saline 1000ML IV soln IV ONE (15:10)
[2020-03-05] MEDS ORDERED: ondansetron/PF 4mg/2ml inj IV ONE (15:10)
[2020-03-05] MEDS ORDERED: fentaNYL/PF 50MCG/1 ML 2ML syringe IV ONE ×3 (15:10→20:55)
[2020-03-05 15:24] LABS: CLARITY,URINE CLEAR (Clear); COLOR,URINE YELLOW (Yellow); GLUCOSE, URINE NEGATIVE (Neg); KETONES,URINE NEGATIVE (Neg); LEUKOCYTE ESTERASE ,URINE NEGATIVE (Neg); NITRITES, URINE NEGATIVE (Neg); OCCULT BLOOD,URINE LARGE (Neg); PH,URINE 5.5 (4.8-8.0); PROTEIN,URINE NEGATIVE (Neg); UROBILINOGEN,URINE 0.2 E.U/dL (0.2-1.0)
[2020-03-05 15:30] LABS: UA COLLECTION TYPE CLN CATCH MIDSTREAM
[2020-03-05 15:31] LABS: BACTERIA,URINE NONE SEEN /HPF (Neg); MUCUS STRANDS NONE SEEN /LPF (Neg); RBC,URINE 50-100 /HPF (0-2); SQUAMOUS EPITHELIAL CELL,UR FEW /LPF (FEW); WBC,URINE 0-4 /HPF (0-4)
[2020-03-05 15:37] LABS: BASOPHILS # (AUTO) 0.2 X10'3 (0-0.2); BASOPHILS % (AUTO) 1.3 % (0-1); EOSINOPHILS # (AUTO) 0.2 X10'3 (0-0.9); EOSINOPHILS % (AUTO) 1.7 % (0-6); HEMATOCRIT 38.6 % (35.0-45.0); HEMOGLOBIN 12.4 g/dl (12.0-16.0); LYMPHOCYTES # (AUTO) 5.5 X10'3 (1.1-4.8); LYMPHOCYTES % (AUTO) 46.2 % (21-51); MEAN CORPUSCULAR HEMOGLOBIN 23.1 PG (27.0-31.0); MEAN CORPUSCULAR HGB CONC 32.1 g/dL (33.0-36.5); MEAN CORPUSCULAR VOLUME 72.1 FL (78-98); MEAN PLATELET VOLUME 7.9 FL (7.4-10.4); MONOCYTES # (AUTO) 0.5 X10'3 (0-0.9); MONOCYTES % (AUTO) 3.8 % (2-12); NEUTROPHILS # (AUTO) 5.6 X10'3 (1.8-7.7); PLATELET COUNT 564 X10'3 (140-440); RED BLOOD COUNT 5.35 X10'6 (4.20-5.60); RED CELL DISTRIBUTION WIDTH 17.9 % (11.5-14.5)
[2020-03-05 15:49] LABS: ALANINE AMINOTRANSFERASE 28 U/L (12-78); ALBUMIN/GLOBULIN RATIO 0.9 (1.1-1.5); ALKALINE PHOSPHATASE 121 IU/L (46-116); ANION GAP 13 (8-16); ASPARTATE AMINO TRANSFERASE 16 U/L (10-37); BILIRUBIN,TOTAL 0.3 MG/DL (0.1-1.0); BLOOD UREA NITROGEN 8 MG/DL (7-18); BUN/CREATININE RATIO 10.1 (6.6-38.0); C-REACTIVE PROTEIN 0.46 MG/DL (0.0-0.5); CALCIUM 9.6 MG/DL (8.5-10.1); CHLORIDE 102 MMOL/L (99-107); CREATININE 0.79 MG/DL (0.40-0.90); GLUCOSE 101 MG/DL (70-104); MAGNESIUM 1.9 MG/DL (1.5-2.4); POTASSIUM 3.9 MMOL/L (3.5-5.1); SODIUM 140 MMOL/L (135-145); TOTAL CARBON DIOXIDE 25.1 MMOL/L (24-32); TOTAL PROTEIN 8.5 G/DL (6.4-8.2); eGFR 80 ML/MIN
--- NOTE | 2020-03-05 15:58 | NUR ---
TO MRI PER WC.
[2020-03-05] MEDS ORDERED: GADOTERATE MEGLUMINE 7.5 MMOL/15 ML VIAL IV ONE (17:18)
[2020-03-05] MEDS ORDERED: proCHLORperazine 10 MG/2 ml inj IV ONE (20:55)
[2020-03-05 22:30] VITALS: BP 121/76
== END 2020-03-06 01:49 | disposition short-term general hospital (02) ==
LOC: ER 13:23 → EEVIPCON 13:23 → ER 03-06 01:49
DX: J32.9 Chronic sinusitis, unspecified (principal); G62.9 Polyneuropathy, unspecified; K21.9 Gastro-esophageal reflux disease without esophagitis; E03.9 Hypothyroidism, unspecified; G89.29 Other chronic pain; Z98.890 Other specified postprocedural states; Z88.2 Allergy status to sulfonamides; Z88.5 Allergy status to narcotic agent; Z88.8 Allergy status to other drugs, medicaments and biological substances; Z79.899 Other long term (current) drug therapy
CPT/HCPCS: 36415; 71045; 72158; 80053; 81001; 83605; 83735; 84145; 85025; 85651; 86140; 87040; 93005; 96365; 96375; 96376; 99285; A9575; J0780; J2405; J3010; J7030; J3490

== ENCOUNTER → 2020-08-26 | Outpatient (CLI) | payer BC ==
[2020-08-26 14:15] LABS: BASOPHILS # (AUTO) 0.2 X10'3 (0-0.2); BASOPHILS % (AUTO) 1.3 % (0-1); EOSINOPHILS # (AUTO) 0.3 X10'3 (0-0.9); EOSINOPHILS % (AUTO) 2.7 % (0-6); HEMATOCRIT 34.1 % (35.0-45.0); HEMOGLOBIN 10.6 g/dl (12.0-16.0); LYMPHOCYTES # (AUTO) 5.2 X10'3 (1.1-4.8); LYMPHOCYTES % (AUTO) 41.8 % (21-51); MEAN CORPUSCULAR HEMOGLOBIN 20.8 PG (27.0-31.0); MEAN PLATELET VOLUME 7.9 FL (7.4-10.4); MONOCYTES # (AUTO) 0.7 X10'3 (0-0.9); MONOCYTES % (AUTO) 5.3 % (2-12); NEUTROPHILS # (AUTO) 6.1 X10'3 (1.8-7.7); NEUTROPHILS % (AUTO) 48.9 % (42-75); PLATELET COUNT 498 X10'3 (140-440); RED BLOOD COUNT 5.09 X10'6 (4.20-5.60); WHITE BLOOD COUNT 12.5 X10'3 (4.5-11.0)
[2020-08-26 14:43] LABS: ANISOCYTOSIS 2+; LARGE PLATELETS FEW; MICROCYTOSIS 2+; PLATELET ESTIMATE INCREASED
[2020-08-26 14:44] LABS: ELLIPTOCYTES FEW; TEAR DROP CELLS FEW
[2020-08-26 14:46] LABS: ALANINE AMINOTRANSFERASE 20 U/L (12-78); ALBUMIN 3.9 G/DL (3.4-5.0); ALBUMIN/GLOBULIN RATIO 0.9 (1.1-1.5); ALKALINE PHOSPHATASE 112 IU/L (46-116); ANION GAP 9 (8-16); ASPARTATE AMINO TRANSFERASE 11 U/L (10-37); BILIRUBIN,TOTAL 0.2 MG/DL (0.1-1.0); BLOOD UREA NITROGEN 8 MG/DL (7-18); BUN/CREATININE RATIO 11.9 (6.6-38.0); CALCIUM 9.9 MG/DL (8.5-10.1); CHLORIDE 102 MMOL/L (99-107); CREATININE 0.67 MG/DL (0.40-0.90); FERRITIN 6 NG/ML (8-252); GLUCOSE 111 MG/DL (70-104); POTASSIUM 4.1 MMOL/L (3.5-5.1); SODIUM 139 MMOL/L (135-145); TOTAL CARBON DIOXIDE 27.6 MMOL/L (24-32); TOTAL PROTEIN 8.2 G/DL (6.4-8.2); eGFR > 90 ML/MIN
[2020-08-26 16:12] LABS: % IRON SATURATION 4 % (11-46); IRON 23 UG/DL (49-151); TOTAL IRON BINDING CAPACITY 526 UG/DL (259-388)
== END | disposition home or self-care (01) ==
LOC: EEVIPCON 13:04 → VAS 13:04
PROVIDERS: ATTEND Family Medicine
DX: I10 Essential (primary) hypertension (principal); E11.9 Type 2 diabetes mellitus without complications; D50.9 Iron deficiency anemia, unspecified; K90.9 Intestinal malabsorption, unspecified; K21.9 Gastro-esophageal reflux disease without esophagitis; D72.829 Elevated white blood cell count, unspecified; E03.9 Hypothyroidism, unspecified; M47.816 Spondylosis without myelopathy or radiculopathy, lumbar region; M54.10 Radiculopathy, site unspecified; M79.605 Pain in left leg
CPT/HCPCS: 80053; 82043; 82306; 82570; 82607; 82728; 82746; 83036; 83540; 83550; 83970; 84439; 84443; 84466; 85008; 85025; 85651; 86140; 93970